=== PATIENT | female | born 1955 | race Caucasian/White ===

== ENCOUNTER 2016-09-19 11:11 | Day surgery (SDC) | payer OTHER ==
[~2016-09-19 11:11] MED LIST: ADULT ASPIRIN81 MG PO; AMBIEN CR12.5 MG PO; AMBIEN CR12.5 MG/BO PO; AMBIEN10 M1 PO; BACITRACIN28.4 G1 TP; BRILINTA90 MG PO; BYSTOLIC2.5 M1 PO; BYSTOLIC2.5 MG PO; CARVEDILOL3.125 MG PO; CLONAZEPAM1 M1 PO; CLONAZEPAM2 M1 PO; CLONAZEPAM2 MG PO; CLOPIDOGREL75 MG PO; COREG6.25 M1 PO; CYMBALTA60 M1 PO; DEPAKOTE ER250 M1 PO; DEPAKOTE ER500 M1 PO; DURAGESIC1 PATCH . TOP; ELIQUIS2.5 M1 PO; FLOMAX0.4 M1 PO; HUMALOG100 UNITS/ SC; IRON PO; K DUR PO; K-DUR20 ME1 PO; LANTUS100 U/ML SC; LANTUS100 UNITS/ SC; LASIX40 M1 PO; LIPITOR80 M1 PO; LYRICA75 MG PO; LYRICA75 MG/CAP NG; MULTI VITAMIN1 EAC2 PO; MULTI VITAMIN1 EACH PO; NORCO 5/3251 TA2 PO; NOVOLOG100 U/M SQ; ONDANSETRON ODT8 MG PO; OXYCODONE HCL10 M2 PO; PLAVIX75 MG PO; POTASSIUM CHLO20 ME3 PO; PROTONIX40 M2 PO; SAVELLA100 MG PO; SILVADENE20 GM TP; TOPROL XL25 MG PO; VITAMIN D32000 UNI3 PO; ZOCOR10 MG PO; ZOFRAN8 M1 PO; ZOFRAN8 MG PO; [UNRECOGNIZED DRUG - OTHER] PO
== END 2016-09-19 14:40 ==
LOC: SRG 11:11 → SHSA 11:12 → ORW 12:53 → SHSA 13:42
PROC: 0Y6S0Z2 Detachment at Left 2nd Toe, Mid, Open Approach (ICD-10-PCS; principal; 2016-09-19)
DX: M86.9 Osteomyelitis, unspecified (principal); I25.2 Old myocardial infarction; I25.10 Atherosclerotic heart disease of native coronary artery without angina pectoris; I10 Essential (primary) hypertension; E78.5 Hyperlipidemia, unspecified; E11.42 Type 2 diabetes mellitus with diabetic polyneuropathy; E11.21 Type 2 diabetes mellitus with diabetic nephropathy; F41.9 Anxiety disorder, unspecified; I73.9 Peripheral vascular disease, unspecified; Z79.01 Long term (current) use of anticoagulants; Z79.4 Long term (current) use of insulin; Z79.899 Other long term (current) drug therapy; Z87.891 Personal history of nicotine dependence; Z90.710 Acquired absence of both cervix and uterus; Z90.89 Acquired absence of other organs; Z89.421 Acquired absence of other right toe(s); Z98.49 Cataract extraction status, unspecified eye; Z96.1 Presence of intraocular lens; Z98.890 Other specified postprocedural states
CPT/HCPCS: J2250; J3010; J3370